=== PATIENT | male | born 1955 | race Caucasian/White ===

== ENCOUNTER → 2020-06-12 | Outpatient (CLI) | payer MEDICARE ==
[2015-01-02 12:50] VITALS: BP 140/89
[~2020-06-12] MED LIST: ASCO500T4 PO; ASPI-482 PO; CALC-507 PO; FOLI1TAB16 PO; GLUC1TAB26 PO; MAGN400C PO; MULT1CAP15 PO; OMEG1CAP38 PO; OXYC1TAB19 PO; TURM500C7 PO; VITAMIN D3 PO
--- NOTE | 2020-06-12 14:02 | KCIC ---
EXAM: 3 Views Right Shoulder DATE: 06/12/2020 12:31 PM INDICATION: Reason: RT SHOULDER PAIN 5-6 MO, LROM, NO RECENT INJURY / Spl. Instructions: / History: COMPARISON: No Prior FINDINGS: There is no evidence for acute fracture or dislocation. AC joint is congruent. Mild lateral downslopi ng of the distal acromion. Humeral head is not high riding. Small rounded lucencies are seen within t he proximal right humeral shaft as well as the scapula. IMPRESSION: 1. No acute fracture or dislocation. 2. Small rounded lucencies within the proximal humerus and scapula possibly physiologic/artifactual although underlying lucent lesion such as from myeloma/metastasis would also have this appearance. If further imaging is clinically indicated, MRI would provide additional details. Electronically signed by: Kendall Palomo MD (06/12/2020 1:59 PM) [id number]
== END ==
LOC: KCIC 12:28
PROVIDERS: ATTEND Family Medicine
DX: M25.511 Pain in right shoulder (principal)
CPT/HCPCS: 73030

== ENCOUNTER → 2020-06-23 | Outpatient (CLI) | payer MEDICARE ==
[2015-01-02 12:50] VITALS: BP 140/89
--- NOTE | 2020-06-23 17:02 | KCIC ---
EXAMINATION: MRI RIGHT SHOULDER WITHOUT IV CONTRAST CLINICAL HISTORY: Chronic right shoulder pain and limited range of motion, possible humeral marrow le sions on recent radiographs TECHNIQUE: Multiplanar multisequential images obtained through the shoulder without intravenous contr ast. COMPARISON: Right shoulder radiographs 06/12/2020 FINDINGS: TENDONS: - Supraspinatus: Mild tendinosis. - Infraspinatus: Moderate tendinosis with interstitial tearing extending from the insertion to the my otendinous junction. No discrete tear definitively visualized. - Subscapularis: Mild tendinosis. - Teres Minor: Within normal limits. - Biceps Tendon: The long head biceps tendon is intact and appropriately located. MUSCLES: Muscle bulk and signal intensity are within normal limits. LABRUM: No discrete tear. GLENOHUMERAL JOINT: - Joint Fluid: No joint effusion or synovitis. - Cartilage: No full-thickness chondral defect visualized. ACROMIOCLAVICULAR JOINT: Moderate hypertrophic degenerative changes. BONES/MARROW: No evidence of acute fracture or suspicious marrow replacing process. No correlative fi ndings for the radiographic lucencies on comparison study. Chronic reactive changes in the posterior greater tuberosity. OTHER: Mild thickening of the subacromial/subdeltoid bursa. IMPRESSION: Moderate tendinosis and interstitial tearing in the infraspinatus tendon. No full-thickness rotator c uff tear. No evidence of suspicious marrow replacing process. Electronically signed by: Pillo Soni DO (06/23/2020 5:00 PM) [id number]
== END ==
LOC: KCIC MRI 12:19
PROVIDERS: ATTEND Family Medicine
DX: S46.911A Strain of unspecified muscle, fascia and tendon at shoulder and upper arm level, right arm, initial encounter (principal); M25.511 Pain in right shoulder; X58.XXXA Exposure to other specified factors, initial encounter; Y93.89 Activity, other specified; Y92.89 Other specified places as the place of occurrence of the external cause; Y99.8 Other external cause status
CPT/HCPCS: 73221

== ENCOUNTER → 2020-12-21 | Outpatient (CLI) | payer MEDICARE ==
[2015-01-02 12:50] VITALS: BP 140/89
--- NOTE | 2020-12-21 12:58 | KCIC ---
MRI BRAIN WO DATE: 12/21/2020 8:45 AM INDICATION: FAMILY HX OF ANEURYSM TECHNIQUE: Axial 3-D [id number] images of the intracranial vessels without contrast. 3D reformatt ed images were performed on a separate workstation and reviewed. Axial DWI and FLAIR sequences were a lso obtained. COMPARISON: None. FINDINGS: Anterior Circulation: Projecting medially from the left RENETTA proximal A2 segment is a 2 x 2 mm infundibulum versus aneurysm. The visualized distal internal carotid arteries are patent with no stenosis. The visualized anterior cerebral and middle cerebral arteries show no significant stenosis. Posterior Circulation: The visualized vertebral arteries, basilar artery, and posterior cerebral darshan jose m show no significant stenosis. No arteriovenous malformation is seen. No acute infarct. No hydrocephalus. No large space-occupying mass. Moderate chronic small vessel isch emic disease. Sphenoid sinus opacification on the left. IMPRESSION: 2 mm infundibulum versus tiny aneurysm of the left RENETTA proximal A2 segment. Electronically signed by: Otf Hendricks MD (12/21/2020 12:56 PM) [facility]
== END ==
LOC: KCIC MRI 08:30
PROVIDERS: ATTEND Family Medicine
DX: I99.8 Other disorder of circulatory system (principal); Z82.49 Family history of ischemic heart disease and other diseases of the circulatory system
CPT/HCPCS: 70544